=== PATIENT | female | born 2005 | race Caucasian/White ===

== ENCOUNTER 2023-11-14 13:57 | Emergency (ER) | payer SELFPAY ==
[2023-11-14 14:53] LABS: #Basophils 0.01 10x3/uL (0.0-0.2); #Eosinphils 0.09 10x3/uL (0.0-0.5); #Monocytes 0.74 10x3/uL (0.0-1.1); #Neutrophils 7.62 10x3/uL (1.5-8.4); %Basophils 0.1 % (0.0-2.0); %Eosinophils 0.8 % (0.0-6.0); %Lymphocytes 20.3 % (18.0-47.0); %Monocytes 6.9 % (0.0-10.0); %Neutrophils 71.6 % (40.0-75.0); Hematocrit 35.2 % (34.9-44.5); Hemoglobin 11.8 g/dL (12.0-15.5); Mean Corpuscular HGB CONC 33.5 g/dL (32.0-36.0); Mean Corpuscular Hemoglobin 29.9 pg (27.0-33.0); Mean Corpuscular Volume 89.3 fL (81.6-98.3); Mean Platelet Volume 10.3 fL (7.4-10.4); Platelet Count 262 10x3/uL (150-450); RBC Distribution Width 12.2 % (11.5-14.5); Red Blood Cell (RBC) Count 3.94 10x6/uL (3.90-5.03); White Blood Cell (WBC) Count 10.7 10x3/uL (3.5-10.5)
[2023-11-14] MEDS ORDERED: Lidocaine Viscous Sol 2% 15 ml UD Cup ONE (15:10)
[2023-11-14] MEDS ORDERED: Milk Of Magnesia 30 ML UDCUP ONE (15:10)
[2023-11-14 15:12] LABS: ALT (SGPT) 7 U/L (8-55); AST (SGOT) 8 U/L (5-34); Albumin 3.1 g/dL (3.5-5.0); Alkaline Phosphatase 66 U/L (40-100); Anion Gap 12 mmol/L (10-20); BUN (Urea Nitrogen) 6 mg/dL (7.0-18.7); Bilirubin, Total 0.2 mg/dL (0.2-1.2); Calc. Creatinine Clearance 0 mL/min (70-130); Calcium 9.6 mg/dL (7.8-10.44); Carbon Dioxide 21 mmol/L (22-29); Chloride 108 mmol/L (98-107); Estimated GFR 128; Globulin 2.9 g/dL (2.4-3.5); Glucose 92 mg/dL (70-105); Lipase 15 U/L (8-78); Magnesium 1.9 mg/dL (1.7-2.2); Sodium 137 mmol/L (136-145)
[2023-11-14] MEDS ORDERED: Famotidine 20 MG TAB ONE (15:17)
[2023-11-14 15:18] LABS: Troponin I Less than 0.010 ng/mL (< 0.028)
[2023-11-14] MEDS ORDERED: Ondansetron ODT 4 MG TAB ONE (16:09)
[2023-11-14 16:18] LABS: Bilirubin Neg (Negative); Blood, Urine Negative (Negative); Clarity Clear (Clear); Glucose, Urine (Dipstick) Normal (Negative); Ketone, Urine 5 mg/dL (Negative); Leukocyte Negative (Negative); Nitrite Negative (Negative); Protein, Urine (Dipstick) Negative (Neg-Trace); Specific Gravity, Urine 1.005 (1.005-1.030); Urobilinogen Normal mg/dL (Less than 2)
[2023-11-14 16:43] LABS: Bacteria/HPF None Seen HPF (None Seen); CAUTI Indications for Culture Pelvic or flank pain; RBC/HPF None Seen HPF (0-3); Squamous Epithelial 0-3 HPF (0-3); Urine Culture Reflex No No; WBC/HPF 0-3 HPF (0-3)
== END 2023-11-14 18:52 | disposition home or self-care (01) ==
LOC: CSHERS 13:57
DX: O99.891 Other specified diseases and conditions complicating pregnancy (principal); R07.9 Chest pain, unspecified; Z3A.14 14 weeks gestation of pregnancy
CPT/HCPCS: 36415; 71045; 76815; 80053; 81001; 83690; 83735; 84484; 84702; 85025; 87086; 93005; Q0162